=== PATIENT | male | born 1960 | race Caucasian/White ===

== ENCOUNTER 2016-12-30 09:29 | Emergency (ER) | payer MEDICARE ==
[2016-12-30] MEDS ORDERED: Ketorolac INJ* 30 MG/ML 1 ML VIAL IM ONE (10:02)
--- NOTE | 2016-12-30 10:22 | RAD ---
HISTORY: Right rib pain, remote trauma COMPARISONS: Chest x-ray dated January 31 0.12 VIEWS: 6, Frontal view of the chest with frontal and oblique views of the right hemithorax. FINDINGS: There is no displaced rib fracture or pneumothorax. The visualized lungs are clear. IMPRESSION: NO DISPLACED RIB FRACTURE OR PNEUMOTHORAX. IF THERE IS PERSISTENT CLINICAL CONCERN FOR OSSEOUS PATHOLOGY OF THE RIBS, BONE SCANNING MAY BE MORE SENSITIVE.
[2016-12-30 10:49] VITALS: BP 173/114
--- NOTE | 2017-01-12 15:38 | UC ---
Truncal Trauma HPI - HPI Summary HPI Summary: 56 year old male with rib pain. C/o right shoulder & rib pain since last night. Pt has prior injury to area & has been moving/lifting heavy over the last couple of weeks. Last night, he rolled over a pile of blankets & tv remote & has been in excruciating pain since. No SOB or CP or MORALES [ End ] - History Of Current Complaint Chief Complaint: UCGeneralIllness Stated Complaint: RIB INJURY Time Seen by Provider: 12/30/16 09:56 Hx Obtained From: Patient Onset/Duration: Gradual Onset Severity Initially: Moderate Pain Intensity: 7 Pain Scale Used: 0-10 Numeric Related History: Similar Episode That Was Diagnosed As: - Allergies/Home Medications Allergies/Adverse Reactions: Allergies Allergy/AdvReac Type Severity Reaction Status Date / Time Codeine Allergy Severe See Comment Verified 12/30/16 09:42 Home Medications: Home Medications Acetaminophen TAB* [Tylenol TAB*] 650 mg PO Q4H PRN 12/30/16 [History Confirmed 12/30/16] Losartan/HCTZ 100/25 (NF) [Hyzaar 100/25 (NF)] 1 tab PO DAILY 12/30/16 [History Confirmed 12/30/16] PMH/Surg Hx/FS Hx/Imm Hx Previously Healthy: Yes - Surgical History Surgical History: Yes Surgery Procedure, Year, and Place: 1995 BACK SURGERY L4 & L5- [facility]. 1963 REMOVAL OF CYST ABDOMEN- [facility]. 1968 T&A- [place]. 1982 TORTION TESTICLE -[place]. 2009 UMBILICAL HERNIA- [place]. distal right bicep tendon repair 2013 - Family History Known Family History: Positive: Unknown, Blood Disorder - grandfather with blood clots, Other - Parkinson's disease in his father - Social History Lives: With Family Alcohol Use: Weekly Alcohol Amount: 18 BEERS/WEEK Substance Use Type: None Smoking Status (MU): Former Smoker Type: Cigarettes Length of Time of Smoking/Using Tobacco: quit 10 years ago Have You Smoked in the Last Year: No Review of Systems Musculoskeletal: Arthralgia - rib pain All Other Systems Reviewed And Are Negative: Yes Physical Exam Triage Information Reviewed: Yes Appearance: Well-Appearing, No Pain Distress, Well-Nourished Vital Signs: Initial Vital Signs Temp 98.3 F 12/30/16 09:43 Pulse 90 12/30/16 09:43 Resp 16 12/30/16 09:43 BP 168/107 12/30/16 09:43 Pulse Ox 98 12/30/16 09:43 Vital Signs Reviewed: Yes Respiratory Exam: Normal Cardiovascular Exam: Normal Musculoskeletal Exam: Normal Musculoskeletal: Positive: Other: - right rib pain / tenderness to palpation right lateral rib 7-8. no step offs. no break in skin, no ecchymosis. no pain with deep inspiration Neurological Exam: Normal Psychological Exam: Normal Skin Exam: Normal Truncal Trauma Course/Dx - Differential Dx/Diagnosis Differential Diagnosis/HQI/PQRI: Chest Wall Contusion Provider Diagnoses: costochondritis Discharge - Discharge Plan Condition: Good Disposition: HOME Prescriptions: Cyclobenzaprine TAB* [Flexeril 10 MG TAB*] 10 mg PO BID PRN #8 tab PRN Reason: Spasms Patient Education Materials: Costochondritis (ED) Referrals: MILDRED Gray [Primary Care Provider] - 3 Days
== END 2016-12-30 10:51 | disposition home or self-care (01) ==
LOC: UCCORT 09:29
DX: M94.0 Chondrocostal junction syndrome [Tietze] (principal); Z88.5 Allergy status to narcotic agent; Z87.891 Personal history of nicotine dependence
CPT/HCPCS: 96372; 99212; G0463; J1885

== ENCOUNTER 2017-11-15 10:27 | Emergency (ER) | payer MEDICARE ==
[2017-11-15 10:49] VITALS: BP 158/105
--- NOTE | 2017-11-15 11:29 | ED ---
ED Suture/Wound Check - HPI Summary HPI Summary: 57 yr old male with sivan in the scalp for 10 days after hitting his head on the corner of a brick building. He had the sivan put [facility]. The patient states he has been doing well and that the swelling and pain from the initial injury have subsided. - History Of Current Complaint Chief Complaint: UCLaceration Stated Complaint: STAPLE REMOVAL Time Seen by Provider: 11/15/17 11:12 Pain Intensity: 0 - Allergies/Home Medications Allergies/Adverse Reactions: Allergies Allergy/AdvReac Type Severity Reaction Status Date / Time codeine Allergy See Comment Verified 11/15/17 10:46 Home Medications: Home Medications Krill/Om-3/Dha/Epa/Phospho/Ast [Megared [place]-3 Krill Oil 500 mg] 1 cap PO DAILY 11/15/17 [History Confirmed 11/15/17] PMH/Surg Hx/FS Hx/Imm Hx Endocrine/Hematology History: Reports: Hx Thyroid Disease - HYPOTHYROID Cardiovascular History: Reports: Hx Hypertension Musculoskeletal History: Reports: Hx Arthritis - GENERALIZED Sensory History: Reports: Hx Contacts or Glasses - GLASSES Denies: Hx Hearing Aid Opthamlomology History: Reports: Hx Contacts or Glasses - GLASSES Psychiatric History: Reports: Hx Anxiety, Hx Depression - HX BIPOLAR - Cancer History Hx Chemotherapy: No - Surgical History Surgery Procedure, Year, and Place: 1995 BACK SURGERY L4 & L5- [facility]. 1963 REMOVAL OF CYST ABDOMEN- [facility]. 1969 T&A- [place]. 1982 TORTION TESTICLE -[place]. 2009 UMBILICAL HERNIA- [place]. distal right bicep tendon repair 2014. R thumb surgery Hx Anesthesia Reactions: No Infectious Disease History: No Infectious Disease History: Denies: Traveled Outside the [place] in Last 30 Days - Family History Known Family History: Positive: Unknown, Blood Disorder - grandfather with blood clots, Other - Parkinson's disease in his father - Social History Alcohol Use: None Alcohol Amount: 18 BEERS/WEEK Substance Use Type: Reports: None Smoking Status (MU): Former Smoker Type: Cigarettes Length of Time of Smoking/Using Tobacco: quit 10 years ago Have You Smoked in the Last Year: No Review of Systems Constitutional: Negative Positive: Other - scalp laceration All Other Systems Reviewed And Are Negative: Yes Physical Exam Triage Information Reviewed: Yes Vital Signs On Initial Exam: Initial Vitals Temp Pulse Resp BP Pulse Ox 99.2 F 72 15 158/105 100 11/15/17 10:42 11/15/17 10:42 11/15/17 10:42 11/15/17 10:42 11/15/17 10:42 Vital Signs Reviewed: Yes Appearance: Positive: Well-Appearing, No Pain Distress Skin: Positive: Other - five sivan in the occipital scalp with wound healed. No cellulitis, no drainage. Head/Face: Positive: Scalp - as above, no step off Eyes: Positive: EOMI ENT: Positive: Normal ENT inspection Respiratory/Lung Sounds: Positive: Clear to Auscultation, Breath Sounds Present Cardiovascular: Positive: RRR. Negative: Murmur Musculoskeletal: Positive: Strength/ROM Intact Neurological: Positive: Sensory/Motor Intact, Alert, Oriented to Person Place, Time, CN Intact II-III - [place] Coma Scale Best Eye Response: 4 - Spontaneous Best Motor Response: 6 - Obeys Commands Best Verbal Response: 5 - Oriented Coma Scale Total: 15 Diagnostics - Vital Signs Vital Signs Temp Pulse Resp BP Pulse Ox 11/15/17 10:42 99.2 F 72 15 158/105 100 - Laboratory Lab Statement: Any lab studies that have been ordered have been reviewed, and results considered in the medical decision making process. Course/Dx - Course Course Of Treatment: 57yr male with sivan removed from scalp. [place] removed, and patient to follow up with the PMD for BP check. - Clinical Impression Provider Diagnoses: Hypertension, Removal of staple Discharge - Sign-Out/Discharge Documenting (check all that apply): Patient Departure - Discharge Plan Condition: Good Disposition: HOME Patient Education Materials: Hypertension (ED), Staple Care (ED) Referrals: Dulce Maria Romo MD [Primary Care Provider] - 2 Days - Billing Disposition and Condition Condition: GOOD Disposition: Home
== END 2017-11-15 11:24 | disposition home or self-care (01) ==
LOC: UCCORT 10:27
DX: S01.01XD Laceration without foreign body of scalp, subsequent encounter (principal); W22.09XD Striking against other stationary object, subsequent encounter; Y92.9 Unspecified place or not applicable; I10 Essential (primary) hypertension; Z87.891 Personal history of nicotine dependence; Z88.5 Allergy status to narcotic agent
CPT/HCPCS: 99211; G0463